=== PATIENT | male | born 1960 | race Hispanic/Latino ===

== ENCOUNTER 2017-02-04 05:04 | Emergency (ER) | payer MEDICARE ==
[~2017-02-04] VITALS: Ht 165.1 cm; Wt 77.3 kg
[~2017-02-04 05:04] MED LIST: ASP81TEC
[2017-02-04 05:10] VITALS: BP 135/90; PULSE 88; RESP 14; O2SAT 99
[2017-02-04 05:39] LABS: APPEARANCE,URINE CLOUDY (CLEAR,HAZY); COLOR,URINE YELLOW (YELLOW); OCCULT BLOOD,URINE LARGE (NEGATIVE)
--- NOTE | 2017-02-04 06:15 | ED.REPORT ---
HPI- Male Date of Service Feb 04, 2017 ED Provider: Uriel Rodríguez MD Patient is a 56 year old male with a history of CVA who presents to the ED complaining of dysuria onset yesterday. Associated symptoms include urinary urgency and frequency. Patient also complains of shaking and near syncope today. He denies fever, abdominal pain, chest pain, shortness of breath, flank pain or vomiting. Nursing Notes Stated Complaint: UNABLE TO URINATE Chief Complaint: Male Abdominal Pain Nursing Notes Reviewed: Yes Allergies: Coded Allergies: No Known Allergies (Verified , 12/19/15) Scheduled Sulfamethoxazole/Trimeth 800-160 mg (Bactrim DS) 1 Each Tablet 1 TABLET PO BID Scheduled PRN Phenazopyridine (Phenazopyridine) 100 Mg Tablet 100 MG PO TID PRN PRN dysurai Miscellaneous Medications Aspirin-Expunged Drug, Do Not Renew! (Aspirin EC-Expunged Drug, Do Not Renew!) 81 Mg Tablet General Time Seen by MD: 05:52 Chief Complaint Dysuria Hx Obtained From: Patient Arrived By: Walk-in Onset Occurred: Yesterday Symptom Duration: Since onset Recent Healthcare: Recent doctor visit Past Medical History Past Medical History Reports: Stroke Past Surgical History none reported Smoking History Smoker Current Status UNK Social History Alcohol Use: Denies alcohol use Drug Use: Denies drug use Other Social History: Good social support, Ambulatory Status Independent Review of Systems Constitutional: Reports: Chills, Denies: Fever GI: Denies: Abdominal pain, Nausea, Vomiting Male: Reports Dysuria, Reports Urinary frequency, Reports Urinary urgency, Denies Flank pain Skin: Denies Itching, Denies Rash Complete sys rev & neg: except as marked. Respiratory: Denies: Non-productive cough, Shortness of breath Cardiovascular: Denies: Chest pain Neurologic: Reports: Shaking, Syncope (near) Physical Exam Initial Vital Signs Vital Signs (First) Date Time Temp Pulse Resp B/P Pulse Ox O2 Delivery O2 Flow Rate FiO2 02/04/17 05:10 36.7 88 14 135/90 99 Room Air Initial VS: Reviewed Male Genitourinary: Atraumatic, Inspection NL General/Constitutional: Awake, Alert Abdomen: Atraumatic, Soft, Non-tender, BS normoactive Skin: Atraumatic, Color NL, No rash, Warm, Dry Head / Eyes: Atraumatic, Normocephalic, PERRL, EOMI Respiratory / Chest: Atraumatic, Breath sounds NL, Breath sounds = bilat, No respiratory distress Cardiovascular: Heart rate NL, Regular rhythm, Heart sounds NL, No gallop, No murmurs, No rubs Back: Atraumatic, No CVA tenderness Rectum / Perineum: Atraumatic prostate firm but nontender trace guaiac positive stool Neurologic: Oriented X3, Speech NL Psychiatric: Affect NL, Mood NL Interpretation & Diagnostics Lab Results Interpretation Result Diagram: 02/04/17 0705 02/04/17 0705 Test 02/04/17 05:20 02/04/17 07:05 02/04/17 07:09 02/04/17 07:24 Urine Color Yellow (YELLOW) Urine Appearance Cloudy (CLEAR,HAZY) Urine pH 6.0 (5.0-8.0) Urine Specific Julian 1.030 (1.003-1.035) Urine Protein Tracemg/dL (NEG,TRACE) Urine Glucose (UA) Negativemg/dL (NEGATIVE) Urine Ketones Negativemg/dL (NEGATIVE) Urine Occult Blood Large (NEGATIVE) Urine Nitrite Negative (NEGATIVE) Urine Bilirubin Negative (NEGATIVE) Urine Urobilinogen 1.0mg/dL (NORMAL) Urine Leukocyte Esterase Moderate (NEGATIVE) Urine RBC 11-50/hpf (0-2) Urine WBC >50/hpf (0-5) Urine Epithelial Cells Occasional/hpf (NONE-MOD) Urine Crystals None seen (NONE SEEN) Urine Bacteria Moderate/hpf (NONE-FEW) Urine Hyaline Casts None/lpf (NONE) Urine Granular Casts None seen (NONE SEEN) Urine Waxy Casts None seen (NONE SEEN) Urine Red Blood Cell Casts None seen (NONE SEEN) Urine White Blood Cell Casts None seen (NONE SEEN) Urine Mucus None seen (None Seen) Urine Trichomonas None seen (NONE SEEN) Urine Yeast None (NONE SEEN) Urinalysis Comment None Urine Culture Reflexed Indicated White Blood Count 15.8th/mm3 (3.8-10.1) Red Blood Count 5.29mil/mm3 (4.40-5.80) Hemoglobin 16.3g/dL (13.8-17.2) Hematocrit 45.3% (41.0-50.0) Mean Corpuscular Volume 85.6fL (81-100) Mean Corpuscular Hemoglobin 30.8pg (27.0-35.0) Mean Corpuscular Hemoglobin Concent 36.0% (32.0-37.0) Red Cell Distribution Width 13.6% (12.3-15.4) Platelet Count 230bil/L (150-400) Neutrophils (%) (Auto) 87.9% (40-74) Lymphocytes (%) (Auto) 4.8% (14-46) Monocytes (%) (Auto) 6.6% (4-12) Eosinophils (%) (Auto) 0.2% (0-5) Basophils (%) (Auto) 0.1% (0-3) Sodium Level 136mEq/L (134-144) Potassium Level 3.9mEq/L (3.5-5.2) Chloride Level 100mEq/L (97-108) Carbon Dioxide Level 21mmol/L (18-29) Blood Urea Nitrogen 20mg/dL (6-24) Creatinine 0.79mg/dL (0.76-1.27) Estimat Glomerular Filtration Rate 108mL/min (>59) Glucose Level 123mg/dL (60-99) Calcium Level 8.7mg/dL (8.5-10.1) Total Bilirubin 1.8mg/dL (0.0-1.2) Aspartate Amino Transf (AST/SGOT) 24U/L (0-50) Alanine Aminotransferase (ALT/SGPT) 23U/L (0-44) Alkaline Phosphatase 56U/L (25-150) Total Protein 7.6g/dL (6.4-8.4) Albumin 4.0g/dL (3.4-5.0) Lactic Acid Level 1.3mmol/L (0.4-2.0) Troponin T 0.010ug/L (0.0-0.011) Hold Lee Top Tube Received (Received) ECG Interpretation Time: 06:58 Interpreted by: ED physician Normal ECG Interpretation: Normal rate (97), Normal sinus rhythm Re-Eval/Medical Decision Med Decision/Clinical Course 56-year-old male with dysuria and frequency. Minimal postvoid residual. Urinalysis is unequivocally infected, prostate exam is reassuring, he is having some shaking chills and had an episode of near syncope with orthostatic hypotension here in the emergency department. After 1 L of saline is orthostatic changes have resolved. I note a leukocytosis with a normal lactate, assuring vital signs, and can hydrate and take medications orally. Will start outpatient treatment, and urine cultures are pending. Given trimethoprim sulfa in the emergency department and a prescription for a 5 day course. Patient advised to return if getting worse. Re-Evaluation/Progress : Time of Eval: 08:33 Re-Evaluation/Progress Note: Discussed results and plan for discharge. Patient understands and agrees to plan. All questions were addressed. Counseled Regarding: Diagnosis, Lab results, Need for follow-up, When/why to return to ED Discharge & Departure Impression: Primary Impression: UTI (urinary tract infection) Urinary tract infection type: site unspecified Hematuria presence: without hematuria Qualified Code: N39.0 - Urinary tract infection, site not specified Additional Impression: Near syncope Disposition: Home Discharge Condition All VS Reviewed: Yes Condition: Stable Patient Instructions: Urinary Tract Infection in Men (ED) Additional Instructions: Emergency department evaluation today included review, examination, labs and ECG. We have identified a urinary tract infection. There was a decrease in blood pressure with standing which resolved after giving IV fluids. Antibiotics have been started and should be continued at home, take trimethoprim sulfa 1 twice daily for 5 days. Rest and get adequate fluids. May use Pyridium up to 3 times a day as needed for painful urination. Pyridium will cause urine to be bright orange. Return to emergency department for fevers and vomiting feeling increasingly weak. Follow up with primary care in 3 -5 days. Referrals: Perez Sullivan MD (PCP) Maribel Attestation Portions of this note were transcribed by Hilda Alston. I, Dr. Rodríguez personally performed the history, physical exam and medical decision-making; I reviewed and confirmed the accuracy of the information in the transcribed note. Signed by: Maribel Amanda, 02/04/17 copies to: Perez Sullivan MD, Donald L MD Feb 04, 2017 06:15 Jackeline Alston Feb 04, 2017 06:20
[2017-02-04] MEDS ORDERED: Phenazopyridine 97.5 mg Tablet PO ONE (06:55)
[2017-02-04] MEDS ORDERED: Trimethoprim-Sulfa 160 mg-800 mg Tablet PO ONE (06:55)
[2017-02-04 07:08] VITALS: BP_SYST 118; BP_SYST 145; BP_DIAS 90; BP_DIAS 93; PULSE 97; RESP 18; O2SAT 97
[2017-02-04] MEDS ORDERED: 0.9% Sodium Chloride 1,000 ML IV ONE (07:10)
[2017-02-04 07:19] LABS: BASOPHILS % (AUTO) 0.1 % (0-3); EOSINOPHILS % (AUTO) 0.2 % (0-5); MONOCYTES % (AUTO) 6.6 % (4-12); Mean Corpuscular Hemoglobin 30.8 pg (27.0-35.0); Mean Corpuscular Volume 85.6 fL (81-100); NEUTROPHILS % (AUTO) 87.9 % (40-74); Platelet Count 230 bil/L (150-400)
[2017-02-04 08:25] VITALS: BP 141/79; PULSE 91; O2SAT 96
[2017-02-04 08:26] VITALS: BP 139/79; PULSE 96; O2SAT 100
[2017-02-04] MEDS ORDERED: PHEN-773 PO (08:41)
[2017-02-04] MEDS ORDERED: SULF1TAB7 PO (08:41)
[2017-02-04 08:49] VITALS: BP 139/79; PULSE 96; RESP 18; O2SAT 100
== END 2017-02-04 08:49 | disposition home or self-care (01) ==
LOC: SED 05:04
DX: N39.0 Urinary tract infection, site not specified (principal); R55 Syncope and collapse; B96.20 Unspecified Escherichia coli [E. coli] as the cause of diseases classified elsewhere; Z86.73 Personal history of transient ischemic attack (TIA), and cerebral infarction without residual deficits; Z79.82 Long term (current) use of aspirin
CPT/HCPCS: 36415; 51798; 80053; 81000; 81002; 83605; 84484; 85025; 87086; 87088; 87186; 93005; 96360; 99285; J7030

== ENCOUNTER 2017-02-07 14:15 | Emergency (ER) | payer MEDICARE ==
[~2017-02-07] VITALS: Ht 165.1 cm; Wt 77.3 kg
[~2017-02-07 14:15] MED LIST changes: +PHEN-773 PO; +SULF1TAB7 PO
[2017-02-07 14:30] VITALS: BP 124/82; PULSE 102; RESP 16; O2SAT 97
--- NOTE | 2017-02-07 15:53 | ED.REPORT ---
HPI-General Illness Date of Service Feb 07, 2017 ED Provider: Jame Martini DO A 56 year old male with a history of stroke is referred to the ED by his PCP due to concerns for kidney stones. The pt has been experiencing dysuria since , in addition to urinary frequency, fever, chills, decreased urinary output and back pain. He was seen in the ED on 02/04 and prescribed a course of antibiotics, which he has completed. His condition has not significantly improved since taking the antibiotics, though he has been urinating slightly more than prior to taking the antibiotics. The pt denies abdominal pain or pain with bowel movements. He called his PCP today, who recommended he be seen in the ED for a CT scan. Nursing Notes Stated Complaint: KIDNEY ISSUES/SENT FROM DR OFFICE NEEDS IMAGING Chief Complaint: Male Abdominal Pain Nursing Notes Reviewed: Yes Allergies: Coded Allergies: Sulfa (Sulfonamide Antibiotics) (Verified Allergy, Unknown, 02/07/17) Scheduled Sulfamethoxazole/Trimeth 800-160 mg (Bactrim DS) 1 Each Tablet 1 TABLET PO BID Scheduled PRN Phenazopyridine (Phenazopyridine) 100 Mg Tablet 100 MG PO TID PRN PRN dysurai Miscellaneous Medications Aspirin-Expunged Drug, Do Not Renew! 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 Past Surgical History none reported Smoking History Smoker Current Status UNK Social History Alcohol Use: Denies alcohol use Drug Use: Denies drug use Other Social History: Good social support, Ambulatory Status Independent Review of Systems denies pain with bowel movements Full Review of Systems Constitutional: Reports: Chills, Fever Respiratory: Denies: Non-productive cough, Shortness of breath Cardiovascular: Denies: Chest pain GI: Denies: Abdominal pain, Vomiting Male: Reports Urinary frequency, Reports Urination decreased Musculoskeletal: Reports: Back pain Skin: Denies Rash Complete sys rev & neg: except as marked. Physical Exam Vital Signs Vital Signs Date Time Temp Pulse Resp B/P Pulse Ox O2 Delivery O2 Flow Rate FiO2 02/07/17 18:44 37.1 87 20 122/73 95 Room Air 02/07/17 17:50 37.0 89 20 149/88 98 Room Air 02/07/17 14:30 37.6 102 16 124/82 97 Room Air Initial VS: Reviewed General/Constitutional: Awake, Alert Head / Eyes: Atraumatic, Normocephalic, PERRL, EOMI ENT: Atraumatic, Airway patent, Mucous membranes moist Neck: Atraumatic, Supple, Full range of motion Respiratory / Chest: Atraumatic, Breath sounds NL, Breath sounds = bilat, No respiratory distress Cardiovascular: Heart rate NL, Regular rhythm, Heart sounds NL Abdomen: Atraumatic, Soft, Non-tender Back: Atraumatic, Full range of motion, No CVA tenderness Upper Extremities Upper Extremity / MS: Atraumatic, Full range of motion Lower Extremity / Pelvis / MS: Atraumatic, Full range of motion Skin: Atraumatic, Color NL, No rash, Warm, Dry Neurologic: Oriented X3, Speech NL, No motor deficits, No sensory deficits Psychiatric: Affect NL, Mood NL Interpretation & Diagnostics Interpretation & Diagnostics: CT KUB: IMPRESSION: 1. Mild bilateral perinephric inflammatory fat stranding may reflect pyelonephritis in the appropriate clinical and laboratory setting, or may simply reflect early senescent change. No kidney stones or hydronephrosis. 2. Mild descending and sigmoid colon diverticulosis. 3. Grade 1 L5-S1 spondylolisthesis from bilateral L5 pars defects. 4. Fatty infiltration of the liver. Dictated by: Galileo Leon M.D. on 02/07/2017 at 16:31 Approved by: Galileo Leon M.D. on 02/07/2017 at 16:39 Lab Results Interpretation Result Diagram: 02/07/17 1600 02/07/17 1600 Test 02/07/17 16:00 02/07/17 16:07 White Blood Count 4.4th/mm3 (3.8-10.1) Red Blood Count 4.88mil/mm3 (4.40-5.80) Hemoglobin 14.9g/dL (13.8-17.2) Hematocrit 41.8% (41.0-50.0) Mean Corpuscular Volume 85.7fL (81-100) Mean Corpuscular Hemoglobin 30.5pg (27.0-35.0) Mean Corpuscular Hemoglobin Concent 35.6% (32.0-37.0) Red Cell Distribution Width 13.5% (12.3-15.4) Platelet Count 230bil/L (150-400) Neutrophils (%) (Auto) 61.7% (40-74) Lymphocytes (%) (Auto) 19.9% (14-46) Monocytes (%) (Auto) 17.2% (4-12) Eosinophils (%) (Auto) 0% (0-5) Basophils (%) (Auto) 0.5% (0-3) Sodium Level 137mEq/L (134-144) Potassium Level 3.6mEq/L (3.5-5.2) Chloride Level 98mEq/L (97-108) Carbon Dioxide Level 23mmol/L (18-29) Blood Urea Nitrogen 14mg/dL (6-24) Creatinine 0.82mg/dL (0.76-1.27) Estimat Glomerular Filtration Rate 104mL/min (>59) Glucose Level 102mg/dL (60-99) Lactic Acid Level 0.8mmol/L (0.4-2.0) Calcium Level 8.7mg/dL (8.5-10.1) Total Bilirubin 1.2mg/dL (0.0-1.2) Aspartate Amino Transf (AST/SGOT) 59U/L (0-50) Alanine Aminotransferase (ALT/SGPT) 79U/L (0-44) Alkaline Phosphatase 104U/L (25-150) Total Protein 7.2g/dL (6.4-8.4) Albumin 3.6g/dL (3.4-5.0) Hold Urine Received (Received) Re-Eval/Medical Decision Med Decision/Clinical Course urinary tract infection with pyelonephritis. No evidence of obstructing stone, no evidence of sepsis. Lab values have improved over the past few days. 2 g of Rocephin given return and follow-up precautions given Source of Hx: Old records Time of Eval: 17:35 Patient Status: Condition improved Re-Evaluation/Progress Note: Pt rechecked, who is resting. The diagnosis and plan for discharge are discussed. The pt understands and agrees with the plan. All questions are addressed at this time. Counseled Regarding: Diagnosis, Lab results, Need for follow-up, When/why to return to ED Discharge & Departure Primary Impression: Pyelonephritis Disposition: Home Discharge Condition All VS Reviewed: Yes Condition: Stable Additional Instructions: Thank you for entrusting us with your care. Continue your antibiotics. Call your primary care physician in the morning to arrange a follow up appointment in the next several days. Return to the emergency department if you develop any new or worsening symptoms. Referrals: Perez Sullivan MD (PCP) Scribe Attestation Portions of this note were transcribed by Kary Parkinson. I, Dr. Martini personally performed the history, physical exam and medical decision-making; I reviewed and confirmed the accuracy of the information in the transcribed note. copies to: Perez Sullivan MD, Timothy Casandra JOSEPH Feb 07, 2017 15:53 KARY PARKINSON Feb 07, 2017 16:12
[2017-02-07] MEDS ORDERED: 0.9% Sodium Chloride 1,000 ML IV ONE (16:10)
[2017-02-07] MEDS ORDERED: Ketorolac 15 mg/mL Inj IVPUSH ONE (16:10)
[2017-02-07 16:23] LABS: BASOPHILS % (AUTO) 0.5 % (0-3); EOSINOPHILS % (AUTO) 0 % (0-5); MONOCYTES % (AUTO) 17.2 % (4-12); Mean Corpuscular Hemoglobin 30.5 pg (27.0-35.0); Mean Corpuscular Volume 85.7 fL (81-100); NEUTROPHILS % (AUTO) 61.7 % (40-74); Platelet Count 230 bil/L (150-400)
--- NOTE | 2017-02-07 16:41 | DRSVH ---
PROCEDURE: CT KUB ([id number]) INDICATIONS: 56 year-old male with left greater than right flank pain, fevers and chills. TECHNIQUE: Noncontrast 5 mm thick sections acquired from the diaphragms to the symphysis. 5 mm thick coronal an d sagittal reformats were then performed. For radiation dose reduction, the following was used: aut omated exposure control, adjustment of mA and/or kV according to patient size. COMPARISON: None. FINDINGS: Image quality: Excellent. Lung bases: Lung bases are clear. Heart size is normal. Urinary system: Both kidneys are normal in size. No kidney stones. No hydronephrosis. There is mil d bilateral perinephric fat stranding. Both ureters appear non-dilated throughout their expected cou rses. Bladder wall thickness is normal; no calcified bladder stones. Other solid organs: Liver and spleen are normal in size. There is diffuse fatty infiltration of the liver. Gallbladder wall thickness is normal. Pancreas is normal in contours. No adrenal nodules. Peritoneum and bowel: Unenhanced bowel loops demonstrate normal wall thickness and caliber. The candis endix appears normal. There is mild descending and sigmoid colon diverticulosis. No free fluid or air . Nodes and vessels: No retroperitoneal or mesenteric adenopathy by size criteria. Aorta and inferior vena cava are normal in caliber, with mild aortoiliac atherosclerosis. Abdominal wall: No ventral hernias. Pelvis: No free pelvic fluid. No inguinal hernias or adenopathy. Bones: No suspicious bony lesions. No vertebral body compression fractures. There is grade 1 L5-S1 spondylolisthesis from bilateral L5 pars defects. There is mild L4-L5 retrolisthesis from disc degen eration. IMPRESSION: 1. Mild bilateral perinephric inflammatory fat stranding may reflect pyelonephritis in the appropriat e clinical and laboratory setting, or may simply reflect early senescent change. No kidney stones or hydronephrosis. 2. Mild descending and sigmoid colon diverticulosis. 3. Grade 1 L5-S1 spondylolisthesis from bilateral L5 pars defects. 4. Fatty infiltration of the liver. Dictated by: Galileo Leon M.D. on 02/07/2017 at 16:31 Approved by: Galileo Leon M.D. on 02/07/2017 at 16:39
[2017-02-07] MEDS ORDERED: cefTRIAXone Inj 2,000 MG in Dextrose 5% Minibag Plus 50 ML IV ONE (17:40)
[2017-02-07 17:50] VITALS: BP 149/88; PULSE 89; RESP 20; O2SAT 98
[2017-02-07 18:44] VITALS: BP 122/73; PULSE 87; RESP 20; O2SAT 95
== END 2017-02-07 18:44 | disposition home or self-care (01) ==
LOC: SED 14:15
DX: N12 Tubulo-interstitial nephritis, not specified as acute or chronic (principal); Z86.73 Personal history of transient ischemic attack (TIA), and cerebral infarction without residual deficits; Z88.2 Allergy status to sulfonamides
CPT/HCPCS: 36415; 74176; 80053; 83605; 85025; 96361; 96365; 96375; 99285; J0696; J1885; J7030